=== PATIENT | male | born 1990 | race African-American/Black ===

== ENCOUNTER 2016-07-20 02:58 | Emergency (ER) | payer SELFPAY ==
[~2016-07-20] VITALS: Ht 185.4 cm; Wt 63.5 kg
[2016-07-20] MEDS ORDERED: NKM (03:10)
[2016-07-20 03:20] VITALS: BP 118/87
--- NOTE | 2016-07-20 03:24 | Emergency Room Report ---
History of Present Illness General Chief Complaint: General Complaint Source: Patient Present Illness HPI Is a 26-year-old male with no past medical history. He presents with chief complaint of something in his throat and body. Been ongoing for about a week. Denies any fever chills denies any nausea vomiting. Admit to using methamphetamine. No other complaint. Not suicidal or homicidal. Allergies: Coded Allergies: No Known Allergies (Unverified , 07/20/16) Patient History Past Medical History: none Past Surgical History: none Pertinent Family History: none Social History: Reports: drug use, smoking Immunizations: other Reviewed Nursing Documentation: PMH: Agreed, PSxH: Agreed Nursing Documentation-PMH Past Medical History: No Stated History Review of Systems Eye: Denies: blurred vision, eye pain ENT: Denies: ear pain, nose congestion, throat swelling Respiratory: Denies: cough, shortness of breath Cardiovascular: Denies: chest pain, palpitations Gastrointestinal: Denies: abdominal pain, diarrhea, nausea, vomiting Musculoskeletal: Denies: back pain, joint pain Skin: Denies: rash Neurological: Denies: headache, numbness Endocrine: Denies: increased thirst, increased urine Hematologic/Lymphatic: Denies: easy bruising All Other Systems: negative except mentioned in HPI Physical Exam Vital Signs Date Time Temp Pulse Resp B/P Pulse Ox O2 Delivery O2 Flow Rate FiO2 07/20/16 03:06 98.8 91 16 115/81 100 Room Air vitals normal Sp02 EP Interpretation: reviewed, normal General Appearance: well appearing, no apparent distress, alert Head: normocephalic, atraumatic Eyes: bilateral eye EOMI, bilateral eye PERRL ENT: hearing grossly normal, normal pharynx Neck: full range of motion, supple, no meningismus Respiratory: chest non-tender, lungs clear, normal breath sounds Cardiovascular #1: regular rate, rhythm, no murmur Gastrointestinal: normal bowel sounds, non tender, no mass, no organomegaly, no bruit, non-distended Musculoskeletal: back normal, gait/station normal, normal range of motion Psychiatric: mood/affect normal Skin: warm/dry Medical Decision Making Diagnostic Impression: Primary Impression: Methamphetamine abuse Additional Impression: Delusions of parasitosis ER Course 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 This due to methamphetamine abuse. I see no rash or bugs on him. We'll discharge home. Last Vital Signs Date Time Temp Pulse Resp B/P Pulse Ox O2 Delivery O2 Flow Rate FiO2 07/20/16 03:06 98.8 91 16 115/81 100 Room Air Status: unchanged Disposition: HOME, SELF-CARE Condition: Stable Additional Instructions: Abstain from drugs. Followup your Dr. in 7 days. Return if symptom worsen. Go to rehabilitation. ZAHRA PEREZ M.D. Jul 20, 2016 03:24
[2016-07-20 03:31] VITALS: BP 118/87
== END 2016-07-20 03:45 | disposition home or self-care (01) ==
LOC: EMR 03:41
DX: F15.10 Other stimulant abuse, uncomplicated (principal); F22 Delusional disorders; F17.200 Nicotine dependence, unspecified, uncomplicated
CPT/HCPCS: 99283